=== PATIENT | male | born 1965 | race Caucasian/White ===

== ENCOUNTER 2018-01-21 19:22 | Emergency (ER) | payer OTHER, SELFPAY ==
[2018-01-21 19:24] VITALS: BP 127/106; PULSE 63; RESP 16; TEMP 36.6; O2SAT 95; BMI 31.8
--- NOTE | 2018-01-21 20:41 | ED.VISSUMM ---
- ER Visit Summary Date of Service: 01/21/18 Chief Complaint: Allergic reaction History of Present Illness: The patient is a 52 M presenting with allergic reaction. Patient states he was mowing the grass on riding lawnmower. He felt something bite his scalp. He developed swelling of his forehead and face. He denies tongue swelling or difficulty swallowing. Denies shortness of breath. Denies diffuse rash. He has history of previous allergy to bee stings. He is unsure which type of insect bit him today. Physical Examination: Vitals are stable. Patient is afebrile. Alert no acute distress. HEENT exam swelling of forehead and between eyes. No tongue swelling. No pharyngeal edema. Neck is supple. Lungs are clear and equal bilaterally. Heart is regular rate and rhythm. Abdomen is soft nontender nondistended. Extremities are unremarkable. Skin is warm and dry. No rash No focal neurologic deficit. Remainder of exam is unremarkable. Emergency Department Course and Treatment: Patient was given Solu-Medrol IV. He was observed in the ED and had improvement of his symptoms. He has no tongue swelling or pharyngeal edema. No difficulty breathing or swallowing. He is comfortable with discharge. He is given a prescription for an EpiPen. Advised to follow-up with primary care physician. Advised return to ED if worsening complaints. Disposition: Discharge home Impression: Allergic reaction This note was generated with [employer] dictation software. It may contain incorrect words, spelling, and punctuation that were not noted in review of the chart prior to signing ED Disposition - Plan for ED Patient: Chief Complaint: Allergic Reaction Instructions: ED Bite Sting Insect Gen Allergic React Prescriptions: Epinephrine [Epi Pen] 0.3 mg IM X1 #2 syringe Referrals: [facility] ,Out of [Primary Care Provider] -
[2018-01-21] MEDS: MethylPREDNISolone 125 MG/2 ML Vial IV (20:56)
[2018-01-21 20:57] VITALS: BP 141/94; PULSE 54; RESP 16; O2SAT 97
[2018-01-21 22:01] VITALS: BP 139/91; PULSE 57; RESP 17; O2SAT 95
--- NOTE | 2018-01-21 22:10 | ED.DEP ---
ED Disposition - Plan for ED Patient: Chief Complaint: Allergic Reaction Instructions: ED Bite Sting Insect Gen Allergic React Prescriptions: Epinephrine [Epi Pen] 0.3 mg IM X1 #2 syringe Referrals: [facility] Doctor,Out of [Primary Care Provider] -
--- NOTE | 2018-01-21 22:14 | ED.DEP ---
ED Disposition - Plan for ED Patient: Chief Complaint: Allergic Reaction Instructions: ED Bite Sting Insect Gen Allergic React Prescriptions: Epinephrine [Epi Pen] 0.3 mg IM X1 #2 syringe Prednisone 40 mg PO DAILY #10 tablet Referrals: [facility] Doctor,Out of [Primary Care Provider] -
[2018-01-21 22:23] VITALS: BP 153/101; PULSE 57; RESP 18; O2SAT 95
== END 2018-01-21 22:28 | disposition home or self-care (01) ==
PROVIDERS: Emergency Provider Emergency Medicine
DX: T63.481A Toxic effect of venom of other arthropod, accidental (unintentional), initial encounter (principal); R22.0 Localized swelling, mass and lump, head; Y92.9 Unspecified place or not applicable; E11.9 Type 2 diabetes mellitus without complications; Z79.84 Long term (current) use of oral hypoglycemic drugs; Z79.899 Other long term (current) drug therapy
CPT/HCPCS: 96374; 99283

== ENCOUNTER 2019-09-12 14:21 | Observation (INO) | payer OTHER, SELFPAY ==
[2019-09-12] VITALS (10 sets, daily range): BP systolic 120–172; BP diastolic 76–104; PULSE 58–80; RESP 15–18; TEMP 36.3–36.8; O2SAT 92–100; BMI 33.8; BMI 32.9
--- NOTE | 2019-09-12 14:50 | ED.VIS.GEN ---
History of Present Illness Chief Complaint: Abd Pain Informant: Patient Onset: Today Current Severity: Moderate Narrative: Patient presents with pain in the supraumbilical area that began today around noon after he had finished doing some golfing. He did not injure his body any way without activity, woke up and went to the golfing area without difficulty. Has a known history for umbilical hernia he was told and evaluated for this that as long as there were no symptoms he did need to have anything done with it. 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 Denies: Nausea, Vomiting, Diarrhea, Melena, Hematochezia Genitourinary: Denies: Dysuria, Hematuria, Frequency Musculoskeletal: Denies: Back pain, Extremity Pain Skin: Denies: Rash, Wounds Neurological: Denies: Headache, Weakness, Numbness Physical Exam Vital Signs/Narrative: Vital Signs Temp Pulse Resp BP Pulse Ox 09/12/19 14:22 98.1 F 73 15 153/104 H 98 General: Well nourished, Well developed, No Acute Distress Head: Normocephalic, Atraumatic Eyes: Perrl, EOMI ENT: Moist mucous membranes, No rhinorrhea Neck: Supple, Nontender Cardiovascular: Regular rate, Regular rhythm, No murmurs Respiratory: No distress, CTA bilaterally, Chest nontender Abdomen: Soft, Nondistended, Normal bowel sounds, - - He has a fullness in the supra umbilical area from the 9 to 3 o'clock position that is quite tender it is not reducible at this time, there is red no redness or warmth rest of the abdominal area is unremarkable Back: Nontender, Normal Inspection Extremities: Nontender, No edema Skin: Normal color, No rash Neurological: Alert, Oriented x3, Cranial nerves II-XII grossly intact, Normal Strength, Normal Sensation Psychological: Normal affect, Normal Mood Diagnostic/Tx/Re-eval - Medical Decision Making Given all the above in his complaints differential certainly extensive would include incarcerated hernia at this time screening labs are obtained ED evaluation IV fluids pain management and will discuss with surgery Surgery did come by and evaluate the patient they were unable to reduce the hernia they discussed surgical options the patient and family agreed and at this point time the patient is being prepped for surgery, surgery has recommended the CT is currently not required and it has been discontinued the screening labs or not all available those results will be reviewed by the admitting service Admit to surgery stable Impression final incarcerated umbilical hernia, intractable pain ED Disposition - Plan for ED Patient: Diagnosis: Incarcerated umbilical hernia Referrals: [facility] Doctor,Out of [Primary Care Provider] -
[2019-09-12] MEDS: 0.9% Normal Saline 1,000 ML 1000 ML IV (15:01)
[2019-09-12] MEDS: Ondansetron 4 MG/2 ML Vial IV (15:03)
[2019-09-12] MEDS: morphine 8 MG/ML Syringe IV (15:04)
--- NOTE | 2019-09-12 15:15 | EKG12_ITS ---
Test Reason : Blood Pressure : / mmHG Vent. Rate : 065 BPM Atrial Rate : 065 BPM P-R Int : 168 ms QRS Dur : 094 ms QT Int : 428 ms P-R-T Axes : 043 059 046 degrees QTc Int : 445 ms Normal sinus rhythm Normal ECG Confirmed by ALISHA MATHUR, MALATHI ([id number]), desk editor CHA ROSENTHAL ([id number]) on 09/15/2019 8:30:24 AM Referred By: DAVID Confirmed By:MALATHI BRITO MD
[2019-09-12 15:17] LABS: Absolute Lymphocyte Count 1.85 X10^3/uL (0.83-4.51); Absolute Neutrophil Count 3.4 X10^3/uL (2.0-7.7); Basophil# 0.02 X10^3/uL; Basophil% 0.3 % (0-1); Eosinophil# 0.18 X10^3/uL; Eosinophils% 2.9 % (0-5); Hematocrit 42.8 % (40-54); Hemoglobin 14.8 g/dL (13.0-16.5); Lymphocyte # 1.85 X10^3/ul (4.0); Lymphocyte % 30.2 % (19-41); Mean Corp Hgb Conc 34.6 g/dL (32-36); Mean Corpuscular Hgb 31.3 pg (27.0-32.0); Mean Corpuscular Volume 90.5 fL (80-94); Mean Platelet Vol. 9.8 fl (6.2-12.0); Monocyte% 11.4 % (0-10); NRBC Flagged by Analyzer 0 % (0-5); Neutrophil # 3.36 X10^3/uL (2.7-7.7); Platelet Count 248 K/mm3 (150-450); RBC Distribution Width CV 12.1 % (11.6-14.6); RBC Distribution Width SD 39.9 fl (35.1-43.9); Red Blood Count 4.73 M/mm3 (4.6-6.2); White Blood Count 6.1 K/mm3 (4.4-11.0)
--- NOTE | 2019-09-12 15:31 | PCM.HP.STD ---
Problem List (1) Incarcerated ventral hernia Status: Acute History of Present Illness Date of Admission: 09/12/19 The patient is a 54 year old M who reports a sudden onset of abdominal pain about 3 hours ago. The patient reports he has had a ventral hernia for a very long time. 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 He reports that 3 hours ago he was playing golf with his family and noticed that it extended outward and it has been hurting him extremely badly and since then. The patient reports no nausea or vomiting. He has no fevers or chills. Past Medical History Allergies No Known Allergies Allergy (Verified 09/12/19 14:24) Home Medications: Ambulatory Orders Medication Instructions Recorded Atorvastatin Calcium [Lipitor] 10 mg PO DAILY 01/21/18 Epi Pen (for allergic rxn) [Epi 0.3 mg IM X1 #2 syringe 01/21/18 Pen] Metformin HCl 500 mg PO DAILY 01/21/18 Prednisone 40 mg PO DAILY #10 tablet 01/21/18 Surgical History: - - Knee scopes Smoking Status: Former smoker - *Family History Maternal History Items: No pertinent history Review of Systems Constitutional: Denies: Anorexia, Fever HEENT: Denies: Difficulty Swallowing Cardiovascular: Denies: Chest Pain Respiratory: Denies: Cough, Shortness of Breath Gastrointestinal: Reports: Abdominal Pain. Denies: Nausea, Vomiting Genitourinary: Denies: Dysuria Musculoskeletal: Denies: Joint Tenderness Skin: Denies: Dryness Hematologic/ Lymphatic: Denies: Adenopathy VTE Information - Inpt Only VTE Present on Admission: No VTE Mechan Device Prophylaxis: SCD's - Physical Exam Vitals/I&O's: Vital Signs Temp Pulse Resp BP Pulse Ox 98.1 F 73 16 153/104 H 98 09/12/19 14:22 09/12/19 14:22 09/12/19 15:05 09/12/19 14:22 09/12/19 14:22 Oxygen Delivery Method Room Air Weight: 256 lb 9.889 oz Body Mass Index (BMI) 33.8 General: Alert, Oriented x3 Neck: No JVD Lungs: Normal air movement Cardiovascular: Regular rate, Regular Rhythm Abdomen: Soft, Non-Distended, Tender, Hernia - Patient has a nonreducible tender hernia superior to the umbilicus. Laboratory Results 09/12/19 15:06: WBC 6.1, RBC 4.73, Hgb 14.8, Hct 42.8, MCV 90.5, MCH 31.3, MCHC 34.6, RDW Std Deviation 39.9, RDW Coeff of Rashmi 12.1, Plt Count 248, MPV 9.8, Immature Gran % (Auto) 0.200, Neut % (Auto) 55.0, Lymph % (Auto) 30.2, [place] % (Auto) 11.4 H, Eos % (Auto) 2.9, Baso % (Auto) 0.3, Absolute Neuts (auto) 3.4, Absolute Lymphs (auto) 1.85, Nucleated RBC % 0 09/12/19 15:06: Sodium Pending, Potassium Pending, Chloride Pending, Carbon Dioxide Pending, Anion Gap Pending, BUN Pending, Creatinine Pending, Est GFR (MDRD) Af Amer Pending, Est GFR (MDRD) Non-Af Pending, BUN/Creatinine Ratio Pending, Glucose Pending, Calcium Pending, Total Bilirubin Pending, Direct Bilirubin Pending, AST Pending, ALT Pending, Alkaline Phosphatase Pending, Total Protein Pending, Albumin Pending, Lipase Pending Current Medications Sodium Chloride () 1,000 mls @ 1,000 mls/hr IV .Q1H ONE Stop: 09/12/19 15:42 Last Admin: 09/12/19 15:01 Dose: 1,000 mls/hr Documented by: Assessment/Plan All Active Problems Incarcerated umbilical hernia (Acute) Incarcerated ventral hernia (Acute) 54-year-old male with incarcerated ventral hernia possible strangulation 1. Patient was golfing 3 hours ago and reports an extreme pain which was sudden onset. He is not having any nausea or vomiting. He says he has had this hernia for years but this is never happened. On physical exam I was unable to reduce the hernia. The patient is very tender to touch at the area. He does have warmth over the skin. His white count is normal. I discussed surgery to reduce the hernia and repair it. 2. I discussed laparoscopy with the patient. I will begin the surgery laparoscopically and try to reduce the contents. I discussed the possibility of ischemic bowel or omentum requiring resection. I also discussed repairing the hernia either open or laparoscopically with or without mesh. I explained that if there is any inflammation I would not be able to place mesh and this increases the risk of recurrence. I discussed the risks of the surgery including but not limited to bleeding, infection, injury to underlying bowel, bowel resection, stoma. The patient understands the risks and is willing to proceed. I will obtain a 12-lead EKG and order antibiotics for the patient in the ER. I will take the patient emergently to the operating room for repair of this hernia and reduction of contents. Koffi Landrum MD Pager: [facility] [address] [place] [address] [address] [place] [address] Office:
[2019-09-12 15:36] LABS: AST(SGOT) 24 U/L (15-37); Alanine Aminotransfer ALT/SGPT 65 U/L (16-61); Albumin, Serum 3.9 g/dL (3.2-5.0); Alkaline Phosphatase 92 U/L (45-117); Anion Gap 4 (5-15); BUN 20 mg/dL (7-18); BUN/Creat Ratio 19.6 RATIO (10-20); Bilirubin, Direct 0.14 mg/dL (0.00-0.30); Calcium,Total 9.1 mg/dL (8.5-10.1); Chloride 107 mmol/L (98-107); Creatinine, Serum 1.02 mg/dL (0.70-1.30); EST Glomerular Filtration Rate 80 mL/min (>60); Est Glom Filt Rate - Afr Amer 97 mL/min (>60); Estimated Creatinine Clearance 92.48 ml/min; Globulin 3.4 g/dL (2.2-4.2); Glucose 134 mg/dL (74-106); Lipase 114 U/L (73-393); Potassium 4.1 mmol/L (3.5-5.1); Protein, Total 7.3 g/dL (6.4-8.2); Sodium Level 139 mmol/L (136-145)
[2019-09-12 15:51] LABS: Bedside Glucose 119 mg/dL (70-110)
--- NOTE | 2019-09-12 17:37 | PCM.OPRPT ---
Problem List (1) Incarcerated ventral hernia Status: Acute Report of Operation Date of Procedure: 09/12/19 Pre-Operative Diagnosis: Incarcerated ventral hernia Post-Operative Diagnosis: Same Surgery/Procedure Performed:: Incarcerated ventral hernia repair with mesh Description of Procedure: The patient was brought back to the room and general anesthesia was induced. The abdomen was prepped and draped in usual sterile fashion. Visiport technique was used to access the abdomen with a 5 mm port in the left upper quadrant. The abdomen was insufflated to 15 mmHg. The abdomen was inspected for injuries and there were none. The abdomen was inspected and appeared the patient had preperitoneal fat herniating through the defect. There was no bowel or omentum involvement. An additional port was placed in the left lower quadrant under direct visualization. The hernia contents were reduced into the abdomen. It appeared to be preperitoneal fat and preperitoneal appendages. There was no bowel involved. Next the air was released from the abdomen and an incision was made over the hernia defect. This was deepened to the hernia sac and the hernia sac was reduced. The fascia was elevated and a pocket was made in the preperitoneal space. The defect was approximately 2 cm in diameter. An 8 cm ventralex mesh was selected and placed into the preperitoneal space. It was tacked to the fascia in 4 quadrants with 0 PDS suture. The fascial defect was then reapproximated using interrupted 0 PDS sutures. The subcutaneous tissue was irrigated and suctioned dry. The deep tissue was brought together with an 0 Vicryl suture. The main incision and laparoscopy sites were injected with Marcaine. The skin was reapproximated with interrupted 4-0 Monocryl sutures. All the skin incisions were anesthetized and Steri-Strips and bandages were applied. Patient tolerated the procedure well. Grafts/Implants Used: 8 cm ventralex mesh - Admit VTE Documentation VTE Mechan Device Prophylaxis: SCD's
[2019-09-12] MEDS: Bupiv/Epi 0.25% 30 ML Vial (17:40)
--- NOTE | 2019-09-12 17:51 | DCINST_ITS ---
Discharge Diet: Light diet - advance as tolerated Discharge Activity: Return to Normal Activity, May Not Drive - for 2-3 days or while taking narcotic pain meds., May Shower - with the bandage in place 1-2 days after surgery. Lifting Restrictions: 20 pounds for 4 weeks. Additional Activity Instructions:: Climbing stairs is fine, walking is encouraged. Sitting in bed may be uncomfortable. Sitting up using your lateral muscles (sitting up sideways) is usually more comfortable. Do not drive, work heavy equipment of sign legal documents for 24 hours. Pain medications may cause nausea, you should typically eat light foods as you take your pain medications. Pain medications may also cause constipation. If you have difficulty with this, discuss with your doctor. Call your doctor if your incision/area has: Continuous Slow Oozing, Sudden Increased Bleeding, Increased Pain/ Swelling, Increased Redness, Foul Smelling Discharge Call your doctor if you observe: Fever of 101 or Higher Suture Line Care: Avoid Pulling/Pushing, Avoid Pinching/Bending Change Dressing in (Days):: 3 - Leave steri-strips for 1 week. May protect with a guaze bandaid. Cleanse incision/area with: Keep Dressing Clean & Dry Allergies/Adverse Reactions: Allergies No Known Allergies Allergy (Verified 09/12/19 14:24) Medications to take at Discharge Atorvastatin Calcium [Lipitor] 10 mg PO DAILY 01/21/18 Epi Pen (for allergic rxn) [Epi Pen] 0.3 mg IM X1 #2 syringe 01/21/18 Metformin HCl 1,000 mg PO DAILY 01/21/18 Prednisone 40 mg PO DAILY #10 tablet 01/21/18 Ondansetron HCl [Zofran] 4 mg PO Q8H PRN PRN 5 Days #10 tab 09/12/19 Oxycodone HCl/Acetaminophen [Percocet 5-325 mg Tablet] 1 - 2 tab PO Q6H PRN 5 Days #30 tablet 09/12/19 The following prescriptions were given: Oxycodone HCl/Acetaminophen [Percocet 5-325 mg Tablet] 1 - 2 tab PO Q6H PRN 5 Days #30 tablet PRN Reason: Pain Score 4-10/10 Transmission Status: Received by [id number] Ondansetron HCl [Zofran] 4 mg PO Q8H PRN PRN 5 Days #10 tab PRN Reason: Nausea Transmission Status: Pending to [facility] Primary Care Physician: Shahrzad Doctor,Out of [NON-STAFF] - Test Results: Test results from this visit will be discussed in further detail at your follow- up appointment, if applicable. Please Follow Up With: Koffi Landrum MD When: Please call to schedule 2 week follow up appointment. [phone]
[2019-09-12 18:30] LABS: Bedside Glucose 127 mg/dL (70-110)
--- NOTE | 2019-09-12 21:45 | NURSING ---
2 nurse assist for first time up to bathroom, initially slightly dizzy upon standing, took few deep breaths then stated he felt fine, went to bathroom voided and returned to bed with 1 staff assist. denies further needs. in room
[2019-09-12] MEDS: oxyCODONE 5 MG Tablet PO (23:28)
[2019-09-13 03:11] VITALS: BP 145/66; PULSE 74; RESP 16; TEMP 36.6; O2SAT 97
[2019-09-13] MEDS: oxyCODONE 5 MG Tablet PO ×2 (03:28→10:37)
[2019-09-13] MEDS: Acetaminophen 325 MG Tablet 650 MG PO (06:03)
--- NOTE | 2019-09-13 08:07 | PCM.PN.SRG ---
Patient Problems: Active and Suspected Problems Incarcerated umbilical hernia (Acute) Subjective: Patient is doing well with no issues - Physical Exam Vitals/I&O's: Vital Signs Temp Pulse Resp BP Pulse Ox 97.8 F 74 16 145/66 H 97 09/13/19 03:11 09/13/19 03:11 09/13/19 03:11 09/13/19 03:11 09/13/19 03:11 Oxygen Delivery Method Room Air Weight: 256 lb 9.889 oz Body Mass Index (BMI) 32.9 Finger Stick Blood Glucose 127 Intake and Output for Last 24 Hours 09/11/19 09/12/19 09/13/19 23:59 23:59 23:59 Intake Total 3320 / 3320 620 / 620 Output Total 250 / 250 Balance 3070 / 3070 620 / 620 General: Alert, Oriented x3 Lungs: Normal air movement Cardiovascular: Regular rate, Regular Rhythm Abdomen: Soft, Non Tender, Non-Distended Laboratory Results 09/12/19 15:06: WBC 6.1, RBC 4.73, Hgb 14.8, Hct 42.8, MCV 90.5, MCH 31.3, MCHC 34.6, RDW Std Deviation 39.9, RDW Coeff of Rashmi 12.1, Plt Count 248, MPV 9.8, Immature Gran % (Auto) 0.200, Neut % (Auto) 55.0, Lymph % (Auto) 30.2, [place] % (Auto) 11.4 H, Eos % (Auto) 2.9, Baso % (Auto) 0.3, Absolute Neuts (auto) 3.4, Absolute Lymphs (auto) 1.85, Nucleated RBC % 0 09/12/19 15:06: Sodium 139, Potassium 4.1, Chloride 107, Carbon Dioxide 28.0, Anion Gap 4 L, BUN 20 H, Creatinine 1.02, Estim Creat Clear Calc 92.48, Est GFR (MDRD) Af Amer 97, Est GFR (MDRD) Non-Af 80, BUN/Creatinine Ratio 19.6, Glucose 134 H, Calcium 9.1, Total Bilirubin 0.50, Direct Bilirubin 0.14, AST 24, ALT 65 H, Alkaline Phosphatase 92, Total Protein 7.3, Albumin 3.9, Globulin 3.4, Lipase 114 09/12/19 15:43: POC Glucose 119 H 09/12/19 18:27: POC Glucose 127 H Current Medications Acetaminophen (Tylenol) 650 mg PO Q4H PRN PRN PRN Reason: Pain or Fever Last Admin: 09/13/19 06:03 Dose: 650 mg Documented by: Sodium Chloride () 250 mls @ 15 mls/hr IV .[id number] PRN PRN Reason: Saline Flush Sodium Chloride () 250 mls @ 15 mls/hr IV .[id number] PRN PRN Reason: Additional IVPB Infusion Morphine Sulfate () 2 - 4 mg IV Q2H PRN PRN PRN Reason: Pain Score 4-10/10 Morphine Sulfate () 2 - 4 mg IV Q2H PRN PRN PRN Reason: Pain Score 4-10/10 Ondansetron HCl (Zofran) 4 mg IV Q6H PRN PRN PRN Reason: NAUSEA Oxycodone HCl (Oxyir) 5 - 10 mg PO Q4H PRN PRN PRN Reason: Pain Score 4-10/10 Last Admin: 09/13/19 03:28 Dose: 10 mg Documented by: Sodium Chloride () 10 - 40 ml IV UD PRN PRN Reason: SALINE FLUSH Medical Necessity - Tobacco Use Smoking Status: Former smoker Assessment/Plan All Active Problems Incarcerated umbilical hernia (Acute) Incarcerated ventral hernia (Acute) 54-year-old male status post incarcerated ventral hernia repair with mesh 1. Patient is doing well this morning. DC home today. I advised him no heavy lifting for 4 weeks. He will follow-up with me in 2 weeks. Koffi Landrum MD Pager: [facility] [address] [place] [address], [address] [place] [address] Office:
[2019-09-13 09:08] VITALS: BP 126/79; PULSE 66; RESP 18; TEMP 36.7; O2SAT 100
== END 2019-09-13 11:56 | disposition home or self-care (01) ==
LOC: ED 15:39 → SDC 16:49 → MS3 16:50 → SDC 18:38 → MS3 18:38
PROVIDERS: Admitting Provider Surgery; Emergency Provider Emergency Medicine; Visit Provider Surgery
PROC: 0WQF4ZZ Repair Abdominal Wall, Percutaneous Endoscopic Approach (ICD-10-PCS; CPT 49561; principal; 2019-09-12 16:20)
DX: K43.6 Other and unspecified ventral hernia with obstruction, without gangrene (principal); Z87.891 Personal history of nicotine dependence; Z79.899 Other long term (current) drug therapy; Z79.84 Long term (current) use of oral hypoglycemic drugs; Z79.52 Long term (current) use of systemic steroids; E11.9 Type 2 diabetes mellitus without complications
CPT/HCPCS: 00832; 49561; 49568; 80048; 80076; 82962; 83690; 85025; 93005; 96374; 96375; 99218; 99283; J7030; A4216; C1781; G0378; J2405

== ENCOUNTER 2021-10-31 23:38 | Emergency (ER) | payer OTHER, SELFPAY ==
[2021-10-31 23:39] VITALS: BP 131/83; PULSE 84; RESP 18; TEMP 37.7; O2SAT 97; BMI 32.7
[2021-11-01 00:33] VITALS: BP 115/76; PULSE 80; RESP 18; TEMP 38.1; O2SAT 93
[2021-11-01 00:37] LABS: Absolute Lymphocyte Count 0.63 X10^3/uL (0.83-4.51); Absolute Neutrophil Count 5.3 X10^3/uL (2.0-7.7); Basophil# 0.02 X10^3/uL; Basophil% 0.3 % (0-1); Eosinophil# 0.12 X10^3/uL; Eosinophils% 1.8 % (0-5); Hematocrit 38.3 % (40-54); Hemoglobin 13.6 g/dL (13.0-16.5); Lymphocyte # 0.63 X10^3/ul (0.83-4.51); Lymphocyte % 9.5 % (19-41); Mean Corp Hgb Conc 35.5 g/dL (32-36); Mean Corpuscular Hgb 32.9 pg (27.0-32.0); Mean Corpuscular Volume 92.5 fL (80-94); Mean Platelet Vol. 8.7 fl (6.2-12.0); Monocyte% 7.6 % (0-10); NRBC Flagged by Analyzer 0 % (0-5); Neutrophil # 5.33 X10^3/uL (2.7-7.7); Neutrophil % 80.5 % (47-70); Platelet Count 260 K/mm3 (150-450); RBC Distribution Width CV 12.1 % (11.6-14.6); RBC Distribution Width SD 41.3 fl (35.1-43.9); Red Blood Count 4.14 M/mm3 (4.6-6.2); White Blood Count 6.6 K/mm3 (4.4-11.0)
--- NOTE | 2021-11-01 00:39 | RAD_ITS ---
STUDY: PORTABLE AP UPRIGHT CHEST X-RAY OF 0058 HOURS ON 11/01/2021 REASON FOR EXAM: 56-year-old male with fever. TECHNIQUE: A single view portable AP upright chest x-ray was performed protocol. COMPARISON: None. FINDINGS: Mild osseous demineralization. Mild prominence of the left first costochondral cartilage. Borderline cardiomegaly without heart failure. No pulmonary infiltrates, effusion, or pulmonary mass lesions. Minimal linear atelectasis in the right lower lobe. RAD/Chest 1 View (Portable) IMPRESSION: 1. Minimal linear atelectasis in the right lower lobe. 2. No pulmonary infiltrates, effusion, or pulmonary mass lesions. 3. Borderline cardiomegaly without heart failure. 4. No other active cardiopulmonary disease. 5. Mild demineralization. Electronically Signed: Pelon Garcia MD at 2:20 EDT ,
--- NOTE | 2021-11-01 00:41 | EX.ED.DYSGE1 ---
HPI History of Present Illness Chief Complaint: Fever Informant: patient and spouse/S.O. Narrative Narrative: Patient presents with low-grade fever for the last 24 to 36 hours. He denies any significant headache, sinus congestion, cough, abdominal pain, nausea vomiting or diarrhea. He did have some mild nausea this morning when he thinks his fever was up. No dysuria. No rashes. No swollen areas. No chest pain. No leg pain. He just had surgery 1 week ago in [place] for repair of right shoulder injuries. He had rotator cuff, bicep tendon repair. He states his shoulder also is feeling well. Its not really hurting notably. He can move it reasonably well. He was on Keflex for about 4 days after surgery. He had wound dressing was taken off and did not really have any notable drainage. He has not had any drainage from the wound. He has had swelling of the shoulder but it was there after surgery and has not worsened. [facility] Medical History Diabetes Hyperlipidemia Home Medications atorvastatin 10 mg PO DAILY 01/21/18 [History Last Taken Unknown] epinephrine 0.3 mg IM X1 #2 syringe 01/21/18 [Rx Last Taken Unknown] metformin 1,000 mg PO DAILY 01/21/18 [History Last Taken Unknown] prednisone 40 mg PO DAILY #10 tab 01/21/18 [Rx Last Taken Unknown] losartan 50 mg PO DAILY 11/01/21 [History Last Taken Unknown] semaglutide [Ozempic] 1 mg SUBCUT QWEEK 11/01/21 [History Last Taken Unknown] Allergy/AdvReac Type Severity Reaction Status Date / Time No Known Allergies Allergy Verified 10/31/21 23:41 Family History Father Diabetes Heart disease Hyperlipidemia Mother Thyroid disorder Surgical History History of arthroscopy of right knee History of colonoscopy (~2015) History of rotator cuff surgery Status post repair of ventral hernia Social History Smoking Status: Former smoker ROS ROS ED Constitutional Constitutional ED: Reports chills and fever(s) Eyes Eyes: Denies blurry vision ENT ENT ED: Denies rhinorrhea or sore throat Cardiovascular Cardiovascular: Denies chest pain or palpitations Respiratory/Chest Respiratory/Chest: Denies cough, dyspnea or sputum Gastrointestinal Gastrointestinal: Reports nausea; Denies abdominal pain, diarrhea or vomiting Genitourinary Genitourinary ED: Denies dysuria, hematuria or urinary frequency Musculoskeletal Musculoskeletal: Denies myalgias Integumentary Denies rash Neurologic Neurologic: Denies headache(s) Endocrine Endocrinology: Denies polydipsia or polyuria Allergic/Immunologic Allergic/Immunologic ED: Denies mouth swelling or urticaria EXAM Physical Exam Const Vital Signs: 10/31/21 23:39 11/01/21 00:33 11/01/21 01:33 Temperature 100 F H 100.6 F H 100.1 F H Temperature Source Temporal Temporal Oral Pulse Rate 84 80 79 Respiratory Rate 18 18 18 Respiratory Effort Normal Respiratory Pattern Normal Blood Pressure 131/83 H 115/76 126/85 H Blood Pressure Mean 99 89 98 Pulse Ox 97 93 92 Oxygen Delivery Method Room Air Room Air Room Air 11/01/21 02:33 Temperature 98.7 F Temperature Source Oral Pulse Rate 64 Respiratory Rate 18 Respiratory Effort Respiratory Pattern Blood Pressure 139/87 H Blood Pressure Mean 104 Pulse Ox 93 Oxygen Delivery Method Room Air Positive well nourished and well developed General Appearance ED: well developed and NAD; Negative for cyanotic or diaphoretic HEENT Reports moist mucous membranes Negative for trauma or tenderness Eyes General Eye ED: Negative for pale conjunctiva or scleral icterus Neck no JVD Chest Wall inspection of chest normal Resp normal respiratory effort and clear to auscultation bilaterally Effort and Inspection: pain with movement Auscultation: Negative for rales, rhonchi or wheezes Cardio regular rate, regular rhythm and no murmurs GI normal to inspection, nondistended, normoactive bowel sounds and non-tender Palpation: soft Back/Spine no CVA tenderness Extremity normal to inspection Extremity Narrative: Patient does have some swelling around his shoulder. He has some bruising. However he can move it within short arc range of motion limited by his sling. He states it does not hurt at all when he does that. The wound looks great. There is no erythema and no drainage whatsoever. General Extremety ED: Negative for tenderness Neuro oriented x3 Sensorium / Orientation: alert Psych mental status grossly normal Skin no rashes or lesions noted Skin Narrative: Wound looks good. MDM MDM MDM Narrative Medical decision making narrative: Patient has a normal white count hemoglobin. Electrolytes are unremarkable. Glucose is minimally elevated. Urine is clean. Chest x-ray does show some atelectasis. Patient states his highest temperature at home was about 100.4. The highest we have was 100.6. These are very low-grade temperature elevations. His wound looks great. He is not having increased pain in the shoulder. I think this is a patient who is atelectasis could justify the degree of temperature rise he has had. I do not think he needs antibiotics. We do have cultures pending. I encouraged him to contact his surgeon today to be rechecked and be evaluated. Lab Data Attestation: I reviewed the patient's lab results. Labs: Laboratory Results - last 24 hr 11/01/21 11/01/21 11/01/21 00:26 00:26 00:40 WBC 6.6 RBC 4.14 L Hgb 13.6 Hct 38.3 L MCV 92.5 MCH 32.9 H MCHC 35.5 RDW Std Deviation 41.3 RDW Coeff of Rashmi 12.1 Plt Count 260 MPV 8.7 Immature Gran % (Auto) 0.300 Neut % (Auto) 80.5 H Lymph % (Auto) 9.5 L [place] % (Auto) 7.6 Eos % (Auto) 1.8 Baso % (Auto) 0.3 Absolute Neuts (auto) 5.3 Absolute Lymphs (auto) 0.63 L Nucleated RBC % 0 Sodium 136 Potassium 3.5 Chloride 103 Carbon Dioxide 27.0 Anion Gap 6 BUN 11 Creatinine 0.96 Estim Creat Clear Calc 98.71 Est GFR (MDRD) Af Amer 104 Est GFR (MDRD) Non-Af 86 BUN/Creatinine Ratio 11.5 Glucose 128 H Calcium 9.4 Urine Color Yellow Urine Clarity Clear Urine pH 6.0 Ur Specific [place] 1.010 Urine Protein Negative Urine Glucose (UA) Normal Urine Ketones Negative Urine Occult Blood 10 H Urine Nitrite Negative Urine Bilirubin Negative Urine Urobilinogen Normal Ur Leukocyte Esterase Negative Urine RBC 0 SEEN Urine WBC 0 SEEN Ur Squamous Epith Cells 0 SEEN Urine Bacteria 0 SEEN Urine Mucus 0 SEEN Radiography Diagnostic Testing: Clinical Impression(s) from Imaging Studies Chest X-Ray 11/01/21 00:39 IMPRESSION: 1. Minimal linear atelectasis in the right lower lobe. 2. No pulmonary infiltrates, effusion, or pulmonary mass lesions. 3. Borderline cardiomegaly without heart failure. 4. No other active cardiopulmonary disease. 5. Mild demineralization. Electronically Signed: Pelon Garcia MD at 2:20 EDT , Discharge Plan Triage Chief Complaint: Fever ED Provider: Alberto Camacho Dx/Rx/DC Orders Clinical Impression: Postoperative fever, Atelectasis Instructions: ED Atelectasis, ED FUO Adult Prescriptions: No Action metformin 500 MG tablet 1,000 mg PO DAILY RF: 0 atorvastatin 10 MG tablet 10 mg PO DAILY RF: 0 epinephrine 0.3 MG syringe 0.3 mg IM X1 Qty: 2 RF: 0 prednisone 20 MG tablet 40 mg PO DAILY Qty: 10 RF: 0 losartan 50 mg tablet 50 mg PO DAILY RF: 0 Ozempic 1 mg/dose (4 mg/3 mL) pen injector 1 mg SUBCUT QWEEK RF: 0 [address]errals: [facility] Doctor,Out of [NON-STAFF] - Activity Restrictions/Additional Instructions: Talk to your surgeon in the morning for recheck. Disposition Disposition: Home, Self Care
[2021-11-01] MEDS: Acetaminophen 325 MG Tablet 650 MG PO (00:54)
[2021-11-01 00:56] LABS: Anion Gap 6 (5-15); BUN 11 mg/dL (7-18); BUN/Creat Ratio 11.5 RATIO (10-20); Calcium,Total 9.4 mg/dL (8.5-10.1); Chloride 103 mmol/L (98-107); Creatinine, Serum 0.96 mg/dL (0.70-1.30); EST Glomerular Filtration Rate 86 mL/min (>60); Est Glom Filt Rate - Afr Amer 104 mL/min (>60); Estimated Creatinine Clearance 98.71 ml/min; Glucose 128 mg/dL (74-106); Potassium 3.5 mmol/L (3.5-5.1); Sodium Level 136 mmol/L (136-145)
[2021-11-01 01:13] LABS: Bacteria 0 SEEN /hpf (None Seen); Mucous, Urine 0 SEEN /hpf (<or=2+); Red Blood Cells-Urine 0 SEEN /hpf (0-5); Squamous Epithelial Cells - UA 0 SEEN /hpf (0-5); White Blood Cells 0 SEEN /hpf (0-5)
[2021-11-01 01:14] LABS: Color, Urine Yellow (Yellow); Glucose, Dipstick Normal (Normal); Ketone-Dipstick Negative (Negative); Leukocyte Esterase-Dipstick Negative /ul (Negative); Nitrite-Dipstick Negative (Negative); Occult Blood-Urine 10 /ul (Negative); Protein-Dipstick Negative (Negative); Urine Bilirubin Dipstick Negative (Negative); Urine Clarity Clear (Clear); Urine Urobilinogen Normal (Normal)
[2021-11-01 01:33] VITALS: BP 126/85; PULSE 79; RESP 18; TEMP 37.8; O2SAT 92
[2021-11-01 02:33] VITALS: BP 139/87; PULSE 64; RESP 18; TEMP 37.1; O2SAT 93
[2021-11-01 03:37] VITALS: BP 133/74; PULSE 74; RESP 17; O2SAT 98
== END 2021-11-01 03:38 | disposition home or self-care (01) ==
PROVIDERS: Emergency Provider Emergency Medicine; Visit Provider Emergency Medicine
DX: R50.9 Fever, unspecified (principal); E11.9 Type 2 diabetes mellitus without complications; Z79.4 Long term (current) use of insulin; J98.11 Atelectasis; E78.5 Hyperlipidemia, unspecified; Z87.891 Personal history of nicotine dependence; Z79.899 Other long term (current) drug therapy
CPT/HCPCS: 71045; 80048; 81001; 85025; 87040; 87086; 99284; A4216